=== PATIENT | female | born 1970 | race Caucasian/White ===

== ENCOUNTER 2024-06-11 05:20 | Day surgery (SDC) | payer OTHER ==
[~2024-06-11] VITALS: Ht 165.1 cm; Wt 63.5 kg
[2024-06-11] MEDS ORDERED: MIDAZOLAM HCL 5 MG/5 ML VIAL ONE (07:10)
[2024-06-11] MEDS ORDERED: MEPERIDINE 100 MG INJ. 100 MG/ML VIAL ONE (07:10)
[2024-06-11 08:08] VITALS: O2SAT 100
[2024-06-11 13:16] VITALS: BP_SYST 105; PULSE 57; RESP 18
== END 2024-06-11 08:40 | disposition home or self-care (01) ==
LOC: SDS 05:20 → SMU 05:20 → SDS 08:40
PROVIDERS: ATTEND Internal Medicine Gastroenterology
DX: R10.13 Epigastric pain (principal); K29.50 Unspecified chronic gastritis without bleeding; K31.7 Polyp of stomach and duodenum; K22.70 Barrett's esophagus without dysplasia; Z90.49 Acquired absence of other specified parts of digestive tract; Z79.899 Other long term (current) drug therapy; Z80.0 Family history of malignant neoplasm of digestive organs
CPT/HCPCS: 43239; 88305; 88312; 88313; G0378; J2250; J2175